=== PATIENT | female | born 1965 ===

== ENCOUNTER 2018-05-01 08:55 | Emergency (ER) | payer MEDICAID ==
[2018-05-01 09:03] VITALS: BP 145/85; PULSE 69; RESP 18; TEMP 97.4; O2SAT 100
[2018-05-01] MEDS ORDERED: Lidocaine 2% MPF (5 ml) Inj ONE (09:40)
[2018-05-01] MEDS ORDERED: Tdap Vaccine 0.5 ml Vial (10-64 yrs) IM ONE ×2 (09:47→10:30)
[2018-05-01] MEDS ORDERED: Lidocaine 2% Inj (20ml) INFIL STA (09:47)
--- NOTE | 2018-05-01 10:31 | C.PDOC ---
History Of Present Illness <Scott Bosch - Last Filed: 05/01/18 12:10> <Arben Carias DO - Last Filed: 05/01/18 18:14> CC: Right hand laceration Patient is a 53 year old female who presents to the ED with complaint of right hand laceration (above the thumb) and dorsum between the thumb and index finger , which she suffered when she accidentally shattered a glass cup. Patient denies any other symptoms. (Scott Bosch) History Per: Patient History/Exam Limitations: no limitations Onset/Duration Of Symptoms: Hrs Current Symptoms Are (Timing): Still Present Location Of Injury: Right: Hand (Above the thumb and small superfical laceration between the thumb and index finger) Quality Of Symptoms: Painful Severity: Moderate Pain Scale Rating Of: 5 Recent travel outside of the [place]: No Additional History Per: Patient <Scott Bosch - Last Filed: 05/01/18 12:10> <Arben Carias DO - Last Filed: 05/01/18 18:14> Time Seen by Provider: 05/01/18 09:04 Chief Complaint (Nursing): Abnormal Skin Integrity Past Medical History Family History: States: No Known Family Hx <Scott Bosch - Last Filed: 05/01/18 12:10> - Social History Hx Alcohol Use: No Hx Substance Use: No - Immunization History Hx Tetanus Toxoid Vaccination: No Hx Influenza Vaccination: No Hx Pneumococcal Vaccination: No <Aretha JOYNERArben - Last Filed: 05/01/18 18:14> Vital Signs: Last Vital Signs Temp 97.4 F L 05/01/18 09:01 Pulse 69 05/01/18 09:01 Resp 18 05/01/18 09:01 BP 145/85 05/01/18 09:01 Pulse Ox 100 05/01/18 10:31 Review Of Systems Constitutional: Negative for: Fever, Chills, Sweats, Weakness Eyes: Negative for: Pain ENT: Negative for: Ear Pain Cardiovascular: Negative for: Chest Pain, Palpitations Respiratory: Negative for: Shortness of Breath Gastrointestinal: Negative for: Nausea, Vomiting Musculoskeletal: Positive for: Hand Pain (Right hand laceration ( above the thumb and between the thumb and index)) <Scott Bosch - Last Filed: 05/01/18 12:10> Physical Exam - Physical Exam Appears: Well Skin: Normal Color, Warm Head: Atraumatic, Normacephalic Eye(s): bilateral: EOMI Cardiovascular: Rhythm Regular Respiratory: Normal Breath Sounds Gastrointestinal/Abdominal: Normal Exam, Bowel Sounds, Soft Extremity: Other (Right hand 2x2 above the thumb laceration and superficial laceration between the thumb and index finger) Pulses: Right Brachial: Normal, Right Radial: Normal <Zonia Boschradha Juan - Last Filed: 05/01/18 12:10> ED Course And Treatment O2 Sat by Pulse Oximetry: 100 <Aretha JOYNERArben - Last Filed: 05/01/18 18:14> Disposition - Disposition Disposition Time: 10:45 <HiroZoniaradha Juan - Last Filed: 05/01/18 12:10> <Aretha JOYNERArben - Last Filed: 05/01/18 18:14> - Disposition Referrals: [facility] Alfredo Narayan, [Non-Staff] - Disposition: HOME/ ROUTINE Condition: IMPROVED Additional Instructions: ANALY MCLAIN, thank you for letting us take care of you today. Your provider was Arben Carias DO and you were treated for LACERATION ON FINGER. The emergency medical care you received today was directed at your acute symptoms. If you were prescribed any medication, please fill it and take as directed. It may take several days for your symptoms to resolve. Return to the Emergency Department if your symptoms worsen, do not improve, or if you have any other problems. Please contact your doctor or call one of the physicians/clinics you have been referred to that are listed on the Patient Visit Information form that is included in your discharge packet. Bring any paperwork you were given at discharge with you along with any medications you are taking to your follow up visit. Our treatment cannot replace ongoing medical care by a primary care provider outside of the emergency department. Thank you for allowing the [facility] team to be part of your care today. Follow up with your primary care doctor in 7-10 days for suture removal. Return to the emergency room if you have any concerns. 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 / has examined the patient and agrees with the treatment plan. <Arben Carias DO - Last Filed: 05/01/18 18:14>
== END 2018-05-01 11:12 | disposition home or self-care (01) ==
LOC: C.ER 08:55
DX: S61.411A Laceration without foreign body of right hand, initial encounter (principal); W25.XXXA Contact with sharp glass, initial encounter

== ENCOUNTER 2018-05-14 12:59 | Emergency (ER) | payer MEDICAID ==
[2018-05-14 13:13] VITALS: BP 130/83; PULSE 90; RESP 18; TEMP 98.1; O2SAT 100
--- NOTE | 2018-05-14 14:02 | C.PDOC ---
History Of Present Illness 53 y/o female presents to the ED for suture removal. The (3) sutures were placed 1 week ago on right thumb. The patient offers no medical complaints at this time. She states the healing process of the sutures went well. Time Seen by Provider: 05/14/18 13:14 Chief Complaint (Nursing): Suture/Staple Removal History Per: Patient History/Exam Limitations: no limitations Location Of Injury: Right: Hand (thumb) Recent travel outside of the [place]: No Past Medical History Reviewed: Historical Data, Nursing Documentation, Vital Signs Vital Signs: Last Vital Signs Temp 98.1 F 05/14/18 13:10 Pulse 90 05/14/18 13:10 Resp 18 05/14/18 13:10 BP 130/83 05/14/18 13:10 Pulse Ox 100 05/14/18 14:04 - Medical History PMH: No Chronic Diseases Surgical History: No Surg Hx Family History: States: Unknown Family Hx - Social History Hx Alcohol Use: No Hx Substance Use: No - Immunization History Hx Tetanus Toxoid Vaccination: Yes (2018) Hx Influenza Vaccination: No Hx Pneumococcal Vaccination: No Review Of Systems Except As Marked, All Systems Reviewed And Found Negative. Constitutional: Negative for: Fever Musculoskeletal: Negative for: Hand Pain Neurological: Negative for: Weakness, Numbness Physical Exam - Physical Exam Appears: Well, Non-toxic, No Acute Distress Skin: Normal Color, Warm, Dry Head: Atraumatic, Normacephalic Eye(s): bilateral: PERRL, EOMI Ear(s): Bilateral: Normal Oral Mucosa: Moist Chest: Symmetrical Cardiovascular: Rhythm Regular, No Murmur Respiratory: Normal Breath Sounds, No Rales, No Rhonchi, No Wheezing Extremity: Normal ROM Extremity: Bilateral: Normal Color And Temperature, Normal ROM Pulses: Left Radial: Normal, Right Radial: Normal Neurological/Psych: Oriented x3, Normal Speech ED Course And Treatment O2 Sat by Pulse Oximetry: 100 (RA) Pulse Ox Interpretation: Normal Medical Decision Making Medical Decision Makin sutures were removed. Sutures appeared dry and intact. Disposition - Disposition Disposition: HOME/ ROUTINE Disposition Time: 12:50 Condition: GOOD Additional Instructions: ANALY MCLAIN, thank you for letting us take care of you today. The emergency medical care you received today was directed at your acute symptoms. If you were prescribed any medication, please fill it and take as directed. It may take several days for your symptoms to resolve. Return to the Emergency Department if your symptoms worsen, do not improve, or if you have any other problems. Please contact your doctor or call one of the physicians/clinics you have been referred to that are listed on the Patient Visit Information form that is included in your discharge packet. Bring any paperwork you were given at discharge with you along with any medications you are taking to your follow up visit. Our treatment cannot replace ongoing medical care by a primary care provider outside of the emergency department. Thank you for allowing the [facility] team to be part of your care today. Follow up with your primary care doctor if you have any concerns. 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 - Scribe Statement The provider has reviewed the documentation as recorded by the Scribe (Ada Agarwal) All medical record entries made by the Scribe were at my direction and personally dictated by me. I have reviewed the chart and agree that the record accurately reflects my personal performance of the history, physical exam, medical decision making, and the department course for this patient. I have also personally directed, reviewed, and agree with the discharge instructions and disposition.
== END 2018-05-14 13:32 | disposition home or self-care (01) ==
LOC: C.ER 12:59
DX: Z48.02 Encounter for removal of sutures (principal)